=== PATIENT | female | born 1985 | race Two or more races ===

== ENCOUNTER 2022-03-22 20:36 | Emergency (ER) | payer MEDICAID, OTHER ==
[~2022-03-22] VITALS: Ht 170.2 cm; Wt 69.7 kg
[2022-03-22] MEDS ORDERED: IBUPROFEN 600 MG TAB PO ONE (21:30)
[2022-03-22] MEDS ORDERED: HYDROcodone-ACET 5/325MG TAB PO ONE (21:30)
[2022-03-22] MEDS ORDERED: ONDANSETRON ODT 4 MG TAB PO ONE (21:30)
[2022-03-22 21:52] LABS: Basophils # (auto) 0.1 10 ^3/uL (0-0.2); Basophils % (auto) 0.5 % (0.0-2.0); Eosinophils # (auto) 0.1 10 ^3/uL (0-0.8); Eosinophils % (auto) 0.5 % (0.0-7.0); Hematocrit 40.7 % (36.0-46.0); Hemoglobin 13.9 g/dL (12.2-16.2); Lymphocytes # (auto) 1.7 10 ^3/uL (0.4-5.4); Lymphocytes % (auto) 16.4 % (10.0-50.0); Mean Corpuscular Hemoglobin 29.5 pg (28.0-32.0); Mean Corpuscular Hgb Conc. 34.2 g/dL (32.0-36.0); Monocytes # (auto) 0.5 10 ^3/uL (0-1.3); Monocytes % (auto) 4.8 % (0.0-12.0); Neutrophils # (auto) 8.2 10 ^3/uL (1.6-8.6); Neutrophils % (auto) 77.8 % (37.0-80.0); Red Blood Cells 4.73 10^6/uL (4.0-5.20); Red Cell Distribution Width 13.3 % (11.8-14.3); White Blood Cell 10.6 10^3/uL (4.4-10.8)
[2022-03-22 22:11] LABS: Albumin 4.2 g/dL (3.4-5.0); BUN/Creatinine Ratio 13.9; Calcium 8.9 mg/dL (8.5-10.1); Potassium 3.6 mmol/L (3.5-5.1)
[2022-03-22 22:13] LABS: Bilirubin, Total 0.3 mg/dL (0.2-1.0); Total Protein 8.2 g/dL (6.4-8.2)
[2022-03-22 23:45] LABS: Urine Bacteria MANY /hpf (None Seen); Urine Blood Negative /uL (Negative); Urine Mucus FEW (None Seen); Urine Specific Gravity 1.009 (1.001-1.035); Urine WBC 5 /hpf (0 - 5)
[2022-03-23 04:04] VITALS: BP 146/84
== END 2022-03-23 04:11 | disposition home or self-care (01) ==
LOC: ER 20:40
DX: S62.394A Other fracture of fourth metacarpal bone, right hand, initial encounter for closed fracture (principal); R07.89 Other chest pain; V49.9XXA Car occupant (driver) (passenger) injured in unspecified traffic accident, initial encounter; Y93.89 Activity, other specified; Y92.410 Unspecified street and highway as the place of occurrence of the external cause; Y99.8 Other external cause status
CPT/HCPCS: 36415; 71046; 73130; 80053; 81001; 81025; 83690; 85025; 93005; 99285; Q0162

== ENCOUNTER 2023-02-04 09:17 | Emergency (ER) | payer MEDICAID, OTHER ==
[~2023-02-04] VITALS: Ht 167.6 cm; Wt 70.5 kg
[2023-02-04 09:44] VITALS: BP 160/100; PULSE 76; RESP 18; TEMP 97.6; O2SAT 99
[2023-02-04] MEDS ORDERED: KETOROLAC TROMETH 30 MG/ML 1ML VIAL IM ONE (09:45)
[2023-02-04] MEDS ORDERED: CYCL-839 PO (10:54)
[2023-02-04] MEDS ORDERED: IBUP1TAB5 PO (10:54)
== END 2023-02-04 10:54 | disposition home or self-care (01) ==
LOC: ER 09:17 → EDBD 09:17 → ER 10:54
DX: S16.1XXA Strain of muscle, fascia and tendon at neck level, initial encounter (principal); S29.012A Strain of muscle and tendon of back wall of thorax, initial encounter; S39.012A Strain of muscle, fascia and tendon of lower back, initial encounter; V59.49XA Driver of pick-up truck or van injured in collision with other motor vehicles in traffic accident, initial encounter; Y93.I9 Activity, other involving external motion; Y92.89 Other specified places as the place of occurrence of the external cause; Y99.8 Other external cause status
CPT/HCPCS: 72070; 72100; 72125; 81025; 96372; 99285; J1885

== ENCOUNTER 2023-08-04 08:29 | Emergency (ER) | payer MEDICAID, OTHER ==
[~2023-08-04] VITALS: Ht 170.2 cm; Wt 74.8 kg
[~2023-08-04 08:29] MED LIST: CYCL-839 PO; IBUP1TAB5 PO
[2023-08-04 11:27] LABS: Basophils # (auto) 0 10 ^3/uL (0-0.2); Basophils % (auto) 0.8 % (0.0-2.0); Eosinophils # (auto) 0 10 ^3/uL (0-0.8); Eosinophils % (auto) 0.7 % (0.0-7.0); Hematocrit 40.5 % (36.0-46.0); Hemoglobin 13.8 g/dL (12.2-16.2); Lymphocytes # (auto) 1.7 10 ^3/uL (0.4-5.4); Lymphocytes % (auto) 28.9 % (10.0-50.0); Mean Corpuscular Hemoglobin 29.6 pg (28.0-32.0); Monocytes # (auto) 0.3 10 ^3/uL (0-1.3); Neutrophils # (auto) 3.8 10 ^3/uL (1.6-8.6); Neutrophils % (auto) 64.6 % (37.0-80.0); Red Blood Cells 4.66 10^6/uL (4.0-5.20); Red Cell Distribution Width 13.3 % (11.8-14.3); White Blood Cell 5.9 10^3/uL (4.4-10.8)
[2023-08-04 12:33] VITALS: TEMP 97.9
[2023-08-04] MEDS ORDERED: MEDR5TAB28 PO (12:41)
[2023-08-04 12:51] VITALS: BP 165/99; PULSE 61; RESP 18; O2SAT 99
== END 2023-08-04 12:54 | disposition home or self-care (01) ==
LOC: ER 08:29
DX: N93.8 Other specified abnormal uterine and vaginal bleeding (principal); R10.2 Pelvic and perineal pain
CPT/HCPCS: 36415; 84702; 85025; 86850; 86900; 86901

== ENCOUNTER 2023-11-03 14:09 | Emergency (ER) | payer MEDICAID ==
[~2023-11-03] VITALS: Ht 170.2 cm; Wt 74.8 kg
[~2023-11-03 14:09] MED LIST changes: +MEDR5TAB28 PO
[2023-11-03 14:17] VITALS: BP 152/94; PULSE 74; RESP 20; TEMP 98.5; O2SAT 97
[2023-11-03] MEDS ORDERED: IBUP-1454 PO (15:23)
== END 2023-11-03 15:27 | disposition home or self-care (01) ==
LOC: ER 14:09
DX: N60.01 Solitary cyst of right breast (principal)